=== PATIENT | female | born 1975 | race Hispanic/Latino ===

== ENCOUNTER 2024-08-22 21:44 | Emergency (ER) | payer OTHER, MEDICARE ==
[~2024-08-22] VITALS: Ht 170.2 cm; Wt 91.6 kg
[2024-08-22 22:35] LABS: BASOPHILS # (AUTO) 0.04 K/uL (0.00-0.20); BASOPHILS % (AUTO) 0.6 % (0.0-5.0); EOSINOPHILS # (AUTO) 0.09 K/uL (0.00-0.70); EOSINOPHILS % (AUTO) 1.3 % (0.0-8.0); HEMATOCRIT 30.9 % (36-48); IMMATURE GRANULOCYTE ABSOLUTE 0.06 K/uL (0-1); LYMPHOCYTES # (AUTO) 0.8 K/uL (1.0-4.8); LYMPHOCYTES % (AUTO) 11.1 % (21.0-51.0); MEAN CORPUSCULAR HEMOGLOBIN 29.7 pg (27.0-33.0); MEAN CORPUSCULAR HGB CONC 33.7 g/dL (32.0-36.0); MEAN CORPUSCULAR VOLUME 88.3 fL (79-99); MONOCYTES # (AUTO) 0.3 K/uL (0.1-1.0); MONOCYTES % (AUTO) 4.6 % (3.0-13.0); NEUTROPHILS # (AUTO) 5.7 K/uL (1.8-7.7); NEUTROPHILS % (AUTO) 81.5 % (40.0-77.0); PLATELET COUNT (AUTO) 147 K/uL (130-400); RED CELL DISTRIBUTION WIDTH 12.7 % (11.0-15.5)
[2024-08-22 22:41] LABS: COVID19 (SARS ANTIGEN RAPID) PRESUMPTIVE NEGATIVE (NEGATIVE); INFLUENZA TYPE A Negative For Type A (NEGATIVE); INFLUENZA TYPE B Negative For Type B (NEGATIVE)
[2024-08-22 22:41] LABS: CREATININE 1.2 mg/dL (0.5-1.0); POTASSIUM 3.1 mmol/L (3.5-5.1)
[2024-08-22] MEDS: 0.9%NACL 1000ML 1,000 ML IV ONE (22:45)
--- NOTE | 2024-08-22 22:45 | HMCIMG ---
CHEST 1VW HISTORY: Fever COMPARISON: None FINDINGS: A frontal projection of the chest was obtained. No acute pulmonary infiltrates is seen. The heart is borderline enlarged. Prominent interstitial markings are seen. No evidence of aortic calcification is seen. IMPRESSION: 1. No acute pulmonary infiltrate is seen.
[2024-08-23] MEDS: 0.9% NACL 500ML IV.SOLN 500 ML IV ONE (00:35)
[2024-08-23 01:26] LABS: APPEARANCE,URINE CLEAR (CLEAR); BILIRUBIN,URINE NEGATIVE (NEGATIVE); COLOR,URINE Light-Yellow (YELLOW); GLUCOSE, URINE (UA) >=1000 mg/dL (NEGATIVE); KETONES,URINE NEGATIVE (NEGATIVE); LEUKOCYTE ESTERASE ,URINE NEGATIVE Leu/uL (NEGATIVE); MUCUS,URINE RARE LPF (None Seen); NITRATE,URINE NEGATIVE (NEGATIVE); OCCULT BLOOD,URINE NEGATIVE (NEGATIVE); PH,URINE 5.5 (5.0-8.0); PROTEIN,URINE NEGATIVE (NEGATIVE); RBC,URINE 0-1 /HPF (0-1); SQUAMOUS EPITHELIAL CELL,UR RARE /HPF (0-2); UROBILINOGEN,URINE 0.2 mg/dL (0.2-1.0)
[2024-08-23 01:30] VITALS: TEMP 98.8
[2024-08-23 01:34] VITALS: TEMP 98.8
[2024-08-23] MEDS: acetaMINOPHEN 500 MG TABLET PO ONE (01:34)
[2024-08-23 01:41] VITALS: BP 115/71; PULSE 80; RESP 18; O2SAT 100
[2024-08-23] MEDS: PoTASSium BIcarbonate/CIT AC 25 MEQ TABLET.EFF PO ONE (01:48)
--- NOTE | 2024-08-23 01:50 | ERN ---
General Chief Complaint: Weakness Stated Complaint: GENERAL BODY WEAKNESS, N/V/D X 1 WEEK Time Seen by MD: 21:48 Time Seen by Midlevel: 21:48 Source: patient History of Present Illness Initial Comments 49-year-old female who presents to the emergency department by EMS due to generalized weakness. Patient reports fevers, body aches, episodes of nausea, vomiting, diarrhea during the week. Denies any chest pain, shortness of breath, abdominal pain, dysuria, hematuria or further associated symptoms. States she has not been able to eat anything today due to lack of appetite. 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 Past Surgical History: None ROS Dictation Constitutional: Positive for generalized weakness, body aches Negative for fever,chills, and weight loss Eyes: Negative for injury, pain,redness, and discharge ENT: Negative for injury,pain or swelling Cardiovascular: Negative for chest pain, palpitations, and edema Respiratory: Negative for shortness of breath, cough, and wheezing, Abdomen/GI: Positive for nausea, vomiting, diarrhea Negative for abdominal pain, and constipation Back: Negative for injury and pain : Negative for painful urination, bleeding or discharge MS/Extremity: Negative for injury and deformity Skin: Negative for rash, and discoloration Neuro: Negative for headache, weakness, numbness, tingling, and seizure Psych: Negative for suicide ideation, homicidal ideation, and hallucinations Physical Exam Physical Exam Dictation General: awake, alert, no acute distress Head/Face: Normocephalic, atraumatic Eyes: PERRL, EOMI, normal conjunctiva ENT: oral cavity clear, oral mucosa moist Neck: Supple, normal range of motion Cardiovascular: RRR, normal S1/S2 Respiratory: CTAB, no respiratory distress, no rales or wheezes Abdomen: Soft, non-tender, non-distended, normal bowel sounds, no guarding or rebound. Skin: Warm, dry, normal turgor, no rash MS/Extremity: Pulses equal, no cyanosis, neurovascular intact, FROM Neuro: COAx4, GCS 15, strength 5/5, CN 2-12 intact, normal cerebellar exam, normal gait Psych: Normal behavior, mood, and affect normal Results Laboratory and Microbiology Lab and Micro Result Laboratory Tests Test 08/22/24 22:16 08/22/24 22:20 08/23/24 00:54 Influenza Type A Antigen Negative For Type A Influenza Type B Antigen Negative For Type B SARS-CoV-2 Antigen (Rapid) PRESUMPTIVE NEGATIVE White Blood Count 7.0 K/uL (4.8-10.8) Red Blood Count 3.50 MIL/uL (4.00-5.50) L Hemoglobin 10.4 g/dL (12.0-16.0) L Hematocrit 30.9 % (36-48) L Mean Corpuscular Volume 88.3 fL (79-99) Mean Corpuscular Hemoglobin 29.7 pg (27.0-33.0) Mean Corpuscular Hemoglobin Concent 33.7 g/dL (32.0-36.0) Red Cell Distribution Width 12.7 % (11.0-15.5) Platelet Count 147 K/uL (130-400) Mean Platelet Volume 10.0 fL (7.5-10.5) Immature Granulocyte % (Auto) 0.9 % (0-1) Neutrophils (%) (Auto) 81.5 % (40.0-77.0) H Lymphocytes (%) (Auto) 11.1 % (21.0-51.0) L Monocytes (%) (Auto) 4.6 % (3.0-13.0) Eosinophils (%) (Auto) 1.3 % (0.0-8.0) Basophils (%) (Auto) 0.6 % (0.0-5.0) Neutrophils # (Auto) 5.7 K/uL (1.8-7.7) Lymphocytes # (Auto) 0.8 K/uL (1.0-4.8) L Monocytes # (Auto) 0.3 K/uL (0.1-1.0) Eosinophils # (Auto) 0.09 K/uL (0.00-0.70) Basophils # (Auto) 0.04 K/uL (0.00-0.20) Absolute Immature Granulocyte (auto 0.06 K/uL (0-1) Nucleated Red Blood Cells 0.0 % (0.0-0.19) Sodium Level 130 mmol/L (136-145) L Potassium Level 3.1 mmol/L (3.5-5.1) L Chloride Level 97 mmol/L (101-111) L Carbon Dioxide Level 22 mmol/L (21-32) Blood Urea Nitrogen 15 mg/dL (7-18) Creatinine 1.2 mg/dL (0.5-1.0) H Glomerular Filtration Rate Calc 55 mL/min (>90) Random Glucose 320 mg/dL (70-105) H Total Calcium 7.7 mg/dL (8.5-10.1) L Urine Color Light-Yellow (YELLOW) Urine Appearance CLEAR (CLEAR) Urine pH 5.5 (5.0-8.0) Urine Specific [place] 1.016 (1.001-1.031) Urine Protein NEGATIVE mg/dL (NEGATIVE) Urine Glucose (UA) >=1000 mg/dL (NEGATIVE) H Urine Ketones NEGATIVE mg/dL (NEGATIVE) Urine Occult Blood NEGATIVE (NEGATIVE) Urine Nitrate NEGATIVE (NEGATIVE) Urine Bilirubin NEGATIVE mg/dL (NEGATIVE) Urine Urobilinogen 0.2 mg/dL (0.2-1.0) Urine Leukocyte Esterase NEGATIVE [place]/uL Urine RBC 0-1 /HPF (0-1) Urine WBC 2-5 /HPF (0-1) H Urine Squamous Epithelial Cells RARE /HPF (0-2) Urine Bacteria None /HPF (None Seen) Labs Reviewed?: Yes MDM MDM: Differential diagnosis: Dehydration, electrolyte imbalance, viral illness, viral gastroenteritis Rationale:49-year-old female who presents to the emergency department by EMS due to generalized weakness. Patient reports fevers, body aches, episodes of nausea, vomiting, diarrhea during the week. Denies any chest pain, shortness of breath, abdominal pain, dysuria, hematuria or further associated symptoms. States she has not been able to eat anything today due to lack of appetite. PMHx DM, HTN On initial physical examination patient is in no acute distress, nonlabored breathing, no neurological deficits noted, abdomen is soft nontender. Initial vitals indicate a blood pressure of 69/32. Labs obtained indicate anemia with hemoglobin of 10.4, dehydration noted with decreased potassium, sodium, chloride and mildly elevated creatinine of 1.2. Initial glucose of 320. UA negative for urinary tract infection. Influenza and SARs negative. Chest x-ray obtained with no indications of acute abnormalities for pneumonia noted. Patient received 1 L of NS per EMS, received 1.5 L of IV NS in the ED. Acetaminophen, K- Lyte, and IV fluids administered in the ED. POC glucose 147 post IV fluids. Blood pressure improvement to 115/71. Another L of NS was offered for patient but she refused stating she was cold and felt better. Patient was educated on findings and diagnosis. Advised to follow up with PCP. Return to the emergency department if any worsening symptoms. Patient verbalized understanding. Patient stable for discharge. There are no social concerns with this patient. I independently interpreted the test that were performed, results were reviewed by me and considered findings on radiology if ordered. Medical management and examination interpretation discussions were had by me with other qualified healthcare professionals as indicated for the patient's care. ED Course Orders Procedure Category Date Status Time Cbc With Differential LAB 08/22/24 Complete 21:59 Basic Metabolic Panel LAB 08/22/24 Complete 21:59 Urinalysis LAB 08/22/24 Complete W/Microscopic 21:59 Influenza Type A & B, LAB 08/22/24 Complete Rapid 21:59 Covid19 (Sars Antigen LAB 08/22/24 Complete Rapid) 21:59 Chest 1vw RAD 08/22/24 Resulted 21:59 0.9%Nacl 1000ml (Ns PHA 08/22/24 Complete 1000ml) 22:30 0.9% Nacl 500ml PHA 08/23/24 Complete Iv.Soln (Ns 500ml 00:30 Acetaminophen 500mg PHA 08/23/24 Complete Tab (Tylenol 500mg T 01:30 Potassium Bicarb/Cit PHA 08/23/24 In Process Ac 25meq (K-Lyte Ta 02:00 Bedside Glucose CPOE 08/23/24 Transmitted Fingerstick 01:42 Current Medications Medications (Trade) Dose Ordered Sig/Joesph Route PRN Reason Start Time Stop Time Status Last Admin Dose Admin Acetaminophen (TYLenol 500MG TAB) 1,000 mg ONCE ONCE PO 08/23/24 01:30 08/23/24 01:31 DC 08/23/24 01:34 Potassium Bicarbonate (K-Lyte Tablet Eff 25 Meq Tablet.eff) 25 meq ONCE ONCE PO 08/23/24 02:00 08/23/24 02:01 08/23/24 01:48 Sodium Chloride 500 ml @ 0 mls/hr ONCE ONCE IV 08/23/24 00:30 08/23/24 00:31 DC 08/23/24 00:35 Sodium Chloride 1,000 ml @ 0 mls/hr ONCE ONCE IV 08/22/24 22:30 08/22/24 22:31 DC 08/22/24 22:45 Vital Signs Date Time Temp Pulse Resp B/P (MAP) Pulse Ox O2 Delivery O2 Flow Rate FiO2 08/23/24 01:41 80 18 115/71 100 Room Air* 0 21 08/23/24 01:34 98.8 08/23/24 01:30 98.8 82 17 108/59 100 Room Air* 0 21 08/22/24 23:27 66 17 102/58 97 Room Air* 0 21 08/22/24 22:18 61 16 77/44 99 Room Air* 0 21 08/22/24 21:46 99.0 61 16 69/32 96 Nasal Cannula 0 DX & DISP Disposition: Discharge Departure Impression: Primary Impression: Mild dehydration Additional Impressions: Febrile illness, Anemia, Viral illness Condition: Stable Additional Instructions: Discharge home. Rest. Follow up with primary care DrTigre in 24 hours. Return to the ER for any acute changes or worsening symptoms. If any medications were prescribed take as directed. Okay to continue home medications unless otherwise discussed during your visit in the emergency room today. Patient was also advised to follow-up with primary care physician in 1 to 2 days for continued monitoring. Referrals: LORELEI VILLANUEVA MD (PCP) I performed the substantive portion of the visit. I have reviewed and personally made and approve the management plan that is documented in the notes by myself or the XIOMARA. I acknowledge full responsibility for the patient's management plan. MIKE FITZGERALD Aug 23, 2024 01:50
== END 2024-08-23 02:05 | disposition home or self-care (01) ==
LOC: EDH 21:44
DX: E86.0 Dehydration (principal); R50.9 Fever, unspecified; D64.9 Anemia, unspecified; B34.9 Viral infection, unspecified; E11.9 Type 2 diabetes mellitus without complications; I10 Essential (primary) hypertension; Z86.73 Personal history of transient ischemic attack (TIA), and cerebral infarction without residual deficits; Z88.0 Allergy status to penicillin; Z20.822 Contact with and (suspected) exposure to COVID-19
CPT/HCPCS: 99284; 96360; 71045; 87426; 80048; 85025; 87804 ×2; 82948; 81001; 36415; J7040 ×2; J7030 ×2